=== PATIENT | female | born 1965 | race African-American/Black ===

== ENCOUNTER 2016-06-16 17:15 | Emergency (ER) | payer MEDICAID ==
[2016-06-16 17:39] VITALS: BP 192/106
--- NOTE | 2016-06-16 18:47 | ER Document Report ---
ED Medical Screen (RME) - General Stated Complaint: COUGH Notes: 50 yo female c/o cough x 2 weeks. productive, yellow phelgm. no fever. + flu about 2 weeks ago. - Related Data Allergies/Adverse Reactions: No Known Allergies Allergy (Verified 06/16/16 18:45) Past Medical History - Past Medical History Cardiac Medical History: Reports: Hx Hypertension Past Surgical History: Reports: Hx Section, Hx Orthopedic Surgery - r knee - Immunizations Immunizations up to date: Yes Hx Diphtheria, Pertussis, Tetanus Vaccination: Yes Physical Exam - Vital signs Vitals: Temp Pulse Resp BP Pulse Ox 97.8 F 97 20 192/106 H 100 06/16/16 17:38 06/16/16 17:38 06/16/16 17:38 06/16/16 17:38 06/16/16 17:38 Course - Vital Signs Vital signs: Temp Pulse Resp BP Pulse Ox 97.8 F 97 20 192/106 H 100 06/16/16 17:38 06/16/16 17:38 06/16/16 17:38 06/16/16 17:38 06/16/16 17:38
== END 2016-06-16 23:15 | disposition left against medical advice (07) ==
LOC: ER 17:15
DX: R05 Cough (principal); I10 Essential (primary) hypertension
CPT/HCPCS: 71020; 99283

== ENCOUNTER 2018-03-28 12:33 | Emergency (ER) | payer SELFPAY ==
[2018-03-28] MEDS ORDERED: HYDRALAZINE HCL INJ/PF 20 MG/1 ML SDV IV ONE ×2 (13:12→14:45)
[2018-03-28] MEDS ORDERED: LISINOPRIL 10 MG TABLET PO ONE (13:12)
[2018-03-28 13:16] LABS: ABSOLUTE BASOPHILS # (AUTO) 0.1 10^3/uL (0.0-0.2); ABSOLUTE EOSINOPHILS # (AUTO) 0.1 10^3/uL (0.0-0.6); ABSOLUTE LYMPHOCYTES (AUTO) 4.2 10^3/uL (0.5-4.7); ABSOLUTE NEUT (AUTO) 4.2 10^3/uL (1.7-8.2); BASOPHILS % (AUTO) 0.9 % (0-2); EOSINOPHILS % (AUTO) 1.4 % (0-6); HEMATOCRIT 34.3 % (36.0-47.0); HEMOGLOBIN 11.3 g/dL (12.0-15.5); LYMPHOCYTES % (AUTO) 43.9 % (13-45); MEAN CORPUSCULAR HEMOGLOBIN 22.6 pg (27.0-33.4); MEAN CORPUSCULAR HGB CONC 32.9 g/dL (32.0-36.0); MEAN CORPUSCULAR VOLUME 69 fl (80-97); MONOCYTES % (AUTO) 10.1 % (3-13); PLATELET COUNT 230 10^3/uL (150-450); RED CELL DISTRIBUTION WIDTH 15.4 % (11.5-14.0); SEGMENTED NEUTROPHILS % (AUTO) 43.7 % (42-78); TOTAL CELLS COUNTED % (AUTO) 100 %; WHITE BLOOD COUNT 9.5 10^3/uL (4.0-10.5)
[2018-03-28 13:32] LABS: ALANINE AMINOTRANSFERASE 16 U/L (9-52); ALBUMIN 4.3 g/dL (3.5-5.0); ALKALINE PHOSPHATASE 59 U/L (38-126); ANION GAP 8 (5-19); ASPARTATE AMINO TRANSFERASE 24 U/L (14-36); BILIRUBIN,DIRECT 0.3 mg/dL (0.0-0.4); BILIRUBIN,TOTAL 0.4 mg/dL (0.2-1.3); BLOOD UREA NITROGEN 15 mg/dL (7-20); CALCIUM 9.5 mg/dL (8.4-10.2); CARBON DIOXIDE 30 mmol/L (22-30); CHLORIDE 101 mmol/L (98-107); GLUCOSE 197 mg/dL (75-110); POTASSIUM 4.7 mmol/L (3.6-5.0); SODIUM 138.5 mmol/L (137-145); TOTAL PROTEIN 7.5 g/dL (6.3-8.2)
--- NOTE | 2018-03-28 13:36 | RADIOLOGY REPORT (SQ) ---
EXAM DESCRIPTION: CHEST SINGLE VIEW COMPLETED DATE/TIME: 03/28/2018 1:26 pm REASON FOR STUDY: cp COMPARISON: 06/16/2016 EXAM PARAMETERS: NUMBER OF VIEWS: One view. TECHNIQUE: Single frontal radiographic view of the chest acquired. RADIATION DOSE: NA LIMITATIONS: None. FINDINGS: LUNGS AND PLEURA: No opacities, masses or pneumothorax. No pleural effusion. MEDIASTINUM AND HILAR STRUCTURES: No masses. Contour normal. HEART AND VASCULAR STRUCTURES: Heart normal in size. Normal vasculature. BONES: No acute findings. HARDWARE: None in the chest. OTHER: No other significant finding. IMPRESSION: NO ACUTE RADIOGRAPHIC FINDING IN THE CHEST. TECHNICAL DOCUMENTATION: JOB ID: [id number] [employer]- All Rights Reserved Reading location - IP/workstation name: [email or web address]
[2018-03-28] MEDS ORDERED: AMLODIPINE BESYLATE 5 MG TABLET PO ONE (14:45)
--- NOTE | 2018-03-28 15:30 | ER Document Report ---
ED General - General Chief Complaint: Chest Congestion Stated Complaint: COUGH Time Seen by Provider: 03/28/18 13:11 Mode of Arrival: Ambulatory Information source: Patient TRAVEL OUTSIDE OF THE [place] IN LAST 30 DAYS: No - HPI Patient complains to provider of: cough congestion Onset: Other - 52-year-old female who presents for evaluation of cough and runny nose. She notes that she has been congested for the last week now feels like the cough is in her chest making it difficult for her to clear her throat. She denies any chest pain, lightheadedness, diaphoresis, nausea or emesis. She never had anything like this in the past, denies any history of heart attacks chest pain strokes kidney disease abdominal pain diarrhea constipation or dysuria. - Related Data Allergies/Adverse Reactions: No Known Allergies Allergy (Verified 03/28/18 12:35) Past Medical History - General Information source: Patient - Social History Smoking Status: Never Smoker Frequency of alcohol use: None Drug Abuse: None Family History: Reviewed & Not Pertinent Patient has suicidal ideation: No Patient has homicidal ideation: No - Past Medical History Cardiac Medical History: Reports: Hx Hypertension Renal/ Medical History: Denies: Hx Peritoneal Dialysis Past Surgical History: Reports: Hx Section, Hx Orthopedic Surgery - r knee - Immunizations Immunizations up to date: Yes Hx Diphtheria, Pertussis, Tetanus Vaccination: Yes Review of Systems - Review of Systems -: Yes All other systems reviewed and negative Physical Exam - Vital signs Vitals: Resp BP Pulse Ox 15 221/102 H 100 03/28/18 13:04 03/28/18 13:04 03/28/18 13:04 - General General appearance: Appears well, Alert - HEENT Head: Normocephalic Eyes: Normal Conjunctiva: Normal Cornea: Normal Extraocular movements intact: Yes Eyelashes: Normal Pupils: PERRL Sinus: Normal Nasal: Clear rhinorrhea Mouth/Lips: Normal Mucous membranes: Normal - Respiratory Respiratory status: No respiratory distress Chest status: Nontender Breath sounds: Normal Chest palpation: Normal - Cardiovascular Rhythm: Regular Heart sounds: Normal auscultation Murmur: No - Abdominal Inspection: Normal Distension: No distension Bowel sounds: Normal Tenderness: Nontender Organomegaly: No organomegaly - Back Back: Normal, Nontender - Extremities General upper extremity: Normal inspection, Nontender, Normal color, Normal ROM , Normal temperature General lower extremity: Normal inspection, Nontender, Normal color, Normal ROM , Normal temperature, Normal weight bearing. No: Ostio's sign - Neurological Neuro grossly intact: Yes Cognition: Normal Orientation: AAOx4 [place] Coma Scale Eye Opening: Spontaneous [place] Coma Scale Verbal: Oriented [place] Coma Scale Motor: Obeys Commands Mil[place] Coma Scale Total: 15 Speech: Normal Motor strength normal: LUE, RUE, LLE, RLE Sensory: Normal - Psychological Associated symptoms: Normal affect, Normal mood Course - Re-evaluation Re-evalutation: 03/28/18 15:47 This is an incredibly well-appearing 52-year-old woman who presents for a cough. She has had URI symptoms over the last week and believes that this is likely the cause of it. On examination this patient has incredibly well-appearing, she is a slight runny nose and some erythema in the posterior oropharynx but a reassuring cardiovascular examination with a clear pulmonary examination. Her work of breathing is normal. She has no tenderness in the chest. Her abdominal examination is benign. Likely this patient is suffering from a URI, incidentally was identified this patient has marked hypertension on evaluation. She notes that she has not been taking her lisinopril as directed previously. I believe likely that her lisinopril noncompliance is a contributor to her hypertension today. She had labs drawn through triage which are nondiagnostic at this time. She is essentially asymptomatic at this time from a hypertensive standpoint as she has no obvious renal insufficiency, has no chest pain or obvious shortness of breath. Because of her well appearance we will treat conservatively, she was given a dose of her lisinopril here, she was given a dose of hydralazine IV, and given a dose of amlodipine. She had a return of hypertension while in emergency department was redosed with hydralazine. Will re-dose and antihypertensive with clonidine for a slightly longer effect. Did discuss with the patient the importance of a blood pressure recheck in the coming couple of days, she was given a prescription for amlodipine to take daily over that time. She will follow-up with Dr. Martin that is her primary physician with a blood pressure recheck in the next 2-3 days. At the time of discharge she was chest pain-free well-appearing and stating that she was hungry. - Vital Signs Vital signs: Temp Pulse Resp BP Pulse Ox 16 210/95 H 97 03/28/18 14:42 03/28/18 14:42 03/28/18 14:42 - Laboratory Result Diagrams: 03/28/18 13:05 03/28/18 13:05 Laboratory results interpreted by me: 03/28/18 03/28/18 13:05 13:05 Hgb 11.3 L Hct 34.3 L MCV 69 L MCH 22.6 L RDW 15.4 H Glucose 197 H Discharge - Discharge Clinical Impression: Viral syndrome, Cough, Congestion of throat Hypertension Qualifiers: Hypertension type: unspecified Qualified Code(s): I10 - Essential (primary) hypertension Condition: Good Disposition: HOME, SELF-CARE Instructions: Viral Syndrome ([facility]), Cough Suppressant & Expectorant Medications Additional Instructions: Your seen today in the emergency department for your cough and congestion. He had an evaluation including a physical exam, blood tests, and x-ray and monitoring. I think that your cough and congestion is a viral syndrome. You have been given a medication to help with the cough. It was also noted today that her blood pressure is very high. Please take your lisinopril as you have been directed. You also should use the amlodipine for the next 2 days. You need to have your blood pressure checked by her primary physician in the next week. Return in case of any chest pain, lightheadedness, other symptoms or weakness. Prescriptions: Benzonatate [Tessalon Perle 100 mg Capsule] 100 mg PO Q8HP PRN #40 cap PRN Reason: Amlodipine Besylate [Norvasc 10 mg Tablet] 10 mg PO DAILY #30 tablet Guaifen/Dextromethorphan/K Cit [Sorbutuss Liquid] 474 ml PO TID #1 liquid Forms: Elevated Blood Pressure Referrals: DANIEL MARTIN MD [Primary Care Provider] - Follow up as needed
[2018-03-28] MEDS ORDERED: CLONIDINE HCL 0.2 MG TABLET PO ONE (15:44)
[2018-03-28 16:03] VITALS: BP 198/83
--- NOTE | 2018-03-28 20:15 | EKG REPORT ---
SEVERITY:- ABNORMAL ECG - SINUS RHYTHM LEFT VENTRICULAR HYPERTROPHY ST ELEV, PROBABLE NORMAL EARLY REPOL PATTERN : Confirmed by: Yrn Copeland 28-Mar-2018 20:14:29
--- NOTE | 2018-03-28 20:15 | EKG REPORT ---
SEVERITY:- ABNORMAL ECG - SINUS RHYTHM CONSIDER LEFT VENTRICULAR HYPERTROPHY ST ELEV, PROBABLE NORMAL EARLY REPOL PATTERN : Confirmed by: Yrn Copeland 28-Mar-2018 20:14:39
== END 2018-03-28 16:21 | disposition home or self-care (01) ==
LOC: ER 12:33
DX: B34.9 Viral infection, unspecified (principal); R09.89 Other specified symptoms and signs involving the circulatory and respiratory systems; R05 Cough; J34.89 Other specified disorders of nose and nasal sinuses; I10 Essential (primary) hypertension; Z91.14 Patient's other noncompliance with medication regimen
CPT/HCPCS: 93005; 96376; 99284; 96374; 36415; 85025; 80053; 71045; 93010; J0360

== ENCOUNTER 2019-08-24 15:10 | Emergency (ER) | payer BC ==
--- NOTE | 2019-08-24 15:51 | ER Document Report ---
ED Medical Screen (RME) - General Chief Complaint: Vaginal Pain Stated Complaint: VAGINAL ISSUES Time Seen by Provider: 08/24/19 15:41 Primary Care Provider: DANIEL MARTIN MD [Primary Care Provider] - Follow up as needed Mode of Arrival: Ambulatory Information source: Patient Notes: 53-year-old female presented to ED for possible tampon still in her vagina. She states she which did not feel the strength and it felt like if patient not like a IUD. She states she had an IUD before that had migrated up into her pelvic area and they told her if they were not going to take it out because there was no need to is not bothered anything. She states when she pulled on the string she felt some discomfort in her pelvic area so she did not pull it out. She states she has not pulled up the tampon that was in there. She is concerned whether the IUD is now coming out with the string or if she just has a tampon in her vaginal area. She also has high blood pressure and has not taken her medicines for 5 days. She states she was supposed to pick them up and did not pick them up yet. She her blood pressure is 247/107. I have greeted and performed a rapid initial assessment of this patient. A comprehensive ED assessment and evaluation of the patient, analysis of test results and completion of medical decision making process will be conducted by an additional ED providers. TRAVEL OUTSIDE OF THE [place] IN LAST 30 DAYS: No - Related Data Allergies/Adverse Reactions: No Known Allergies Allergy (Verified 08/24/19 15:38) Home Medications: bp medication Past Medical History - Social History Chew tobacco use (# tins/day): No Frequency of alcohol use: Social Drug Abuse: None - Past Medical History Cardiac Medical History: Reports: Hx Hypertension Renal/ Medical History: Denies: Hx Peritoneal Dialysis Past Surgical History: Reports: Hx Section, Hx Orthopedic Surgery - r knee - Immunizations Immunizations up to date: Yes Hx Diphtheria, Pertussis, Tetanus Vaccination: Yes Physical Exam - Vital signs Vitals: Temp Pulse Resp BP Pulse Ox 98.7 F 78 16 248/119 H 98 08/24/19 15:14 08/24/19 15:14 08/24/19 15:14 08/24/19 15:14 08/24/19 15:14 Course - Vital Signs Vital signs: Temp Pulse Resp BP Pulse Ox 98.7 F 78 16 245/107 H 98 08/24/19 15:38 08/24/19 15:14 08/24/19 15:14 08/24/19 15:47 08/24/19 15:14 Doctor's Discharge - Discharge Referrals: DANIEL MARTIN MD [Primary Care Provider] - Follow up as needed
[2019-08-24 16:34] LABS: ABSOLUTE BASOPHILS # (AUTO) 0.1 10^3/uL (0.0-0.2); ABSOLUTE EOSINOPHILS # (AUTO) 0.1 10^3/uL (0.0-0.6); ABSOLUTE LYMPHOCYTES (AUTO) 3.4 10^3/uL (0.5-4.7); ABSOLUTE MONOCYTES (AUTO) 0.7 10^3/uL (0.1-1.4); ABSOLUTE NEUT (AUTO) 4.2 10^3/uL (1.7-8.2); BASOPHILS % (AUTO) 0.6 % (0-2); EOSINOPHILS % (AUTO) 1.2 % (0-6); HEMATOCRIT 40.5 % (36.0-47.0); HEMOGLOBIN 13.2 g/dL (12.0-15.5); LYMPHOCYTES % (AUTO) 40.3 % (13-45); MEAN CORPUSCULAR HEMOGLOBIN 22.6 pg (27.0-33.4); MEAN CORPUSCULAR HGB CONC 32.5 g/dL (32.0-36.0); MEAN CORPUSCULAR VOLUME 70 fl (80-97); MONOCYTES % (AUTO) 8.4 % (3-13); PLATELET COUNT 220 10^3/uL (150-450); RED BLOOD COUNT 5.83 10^6/uL (3.72-5.28); RED CELL DISTRIBUTION WIDTH 15.5 % (11.5-14.0); SEGMENTED NEUTROPHILS % (AUTO) 49.5 % (42-78); TOTAL CELLS COUNTED % (AUTO) 100 %; WHITE BLOOD COUNT 8.5 10^3/uL (4.0-10.5)
[2019-08-24 16:43] LABS: ALBUMIN 4.8 g/dL (3.5-5.0); ALKALINE PHOSPHATASE 60 U/L (38-126); ANION GAP 11 (5-19); ASPARTATE AMINO TRANSFERASE 23 U/L (14-36); BILIRUBIN,TOTAL 0.4 mg/dL (0.2-1.3); BLOOD UREA NITROGEN 17 mg/dL (7-20); CALCIUM 9.9 mg/dL (8.4-10.2); CARBON DIOXIDE 25 mmol/L (22-30); CHLORIDE 99 mmol/L (98-107); GLUCOSE 247 mg/dL (75-110); POTASSIUM 4.6 mmol/L (3.6-5.0); TOTAL PROTEIN 8.3 g/dL (6.3-8.2)
[2019-08-24 17:22] LABS: APPEARANCE,URINE CLOUDY; BILIRUBIN,URINE NEGATIVE (NEGATIVE); COLOR,URINE YELLOW; GLUCOSE, URINE 50 mg/dL (NEGATIVE); KETONES,URINE NEGATIVE (NEGATIVE); PROTEIN,URINE 100 mg/dL (NEGATIVE); URINE SPECIFIC GRAVITY 1.021; UROBILINOGEN,URINE NEGATIVE mg/dL (<2.0)
--- NOTE | 2019-08-24 17:32 | ER Document Report ---
ED General - General Chief Complaint: Vaginal Pain Stated Complaint: VAGINAL ISSUES Time Seen by Provider: 08/24/19 15:41 Primary Care Provider: DANIEL MARTIN MD [Primary Care Provider] - Follow up as needed Mode of Arrival: Ambulatory TRAVEL OUTSIDE OF THE [place] IN LAST 30 DAYS: No - HPI Notes: Chief complaint: Possible retained vaginal foreign body HPI: 53-year-old female presents with concern for possible vaginal foreign body. Patient says that she thinks that she may have a tampon left in the vagina that she has been unable to remove over the past several days. She denies fever chills or vaginal discharge. She denies dysuria. She is having some mild vaginal discomfort. Patient also notes that she has an IUD and was told in the past that the IUD might be displaced. She says she thinks she can feel the IUD string but is unsure about this and would like to have this checked also while she is here. Patient notes that she has longstanding history of hypertension and she supposed to be taking amlodipine 10 mg daily and lisinopril 20 mg daily. She says that she lost her insurance and was unable to fill her medications for the last 2 weeks. She is now gotten her insurance reinstated and says that she will be able to get these filled today. She denies any headache, dizziness, focal neurologic symptoms, chest pain, dyspnea or difficulty with swallowing or speaking. Patient reports that she is frequently thirsty and is having to get up to urinate at night 2-3 times each evening. Vision has been slightly blurry. She says her family history is strongly positive for diabetes but she has not been tested recently for this. She is never been told that she is diabetic. The patient is seen by Dr. Martin but has not been in for an office visit in close to a year. Presently smokes about 1/4 pack cigarettes per day. Occasional social alcohol. Denies drug use. - Related Data Allergies/Adverse Reactions: No Known Allergies Allergy (Verified 08/24/19 15:38) Home Medications: bp medication Past Medical History - General Information source: Patient, [facility] Records - Social History Smoking Status: Current Some Day Smoker Chew tobacco use (# tins/day): No Frequency of alcohol use: Social Drug Abuse: None Family History: Reviewed & Not Pertinent Patient has homicidal ideation: No - Past Medical History Cardiac Medical History: Reports: Hx Hypertension Endocrine Medical History: Denies: Hx Diabetes Mellitus Type 1, Hx Diabetes Mellitus Type 2 Renal/ Medical History: Denies: Hx Peritoneal Dialysis Past Surgical History: Reports: Hx Section, Hx Orthopedic Surgery - r knee - Immunizations Immunizations up to date: Yes Hx Diphtheria, Pertussis, Tetanus Vaccination: Yes Review of Systems - Review of Systems Notes: Constitutional: Negative for fever. HENT: Negative for sore throat. Eyes: Negative for visual changes. Cardiovascular: Negative for chest pain. Respiratory: Negative for shortness of breath. Gastrointestinal: Negative for abdominal pain, vomiting or diarrhea. Genitourinary: Negative for dysuria. Musculoskeletal: Negative for back pain. Skin: Negative for rash. Neurological: Negative for headaches, weakness or numbness. 10 point ROS negative except as marked above and in HPI. Physical Exam - Vital signs Vitals: Temp Pulse Resp BP Pulse Ox 98.7 F 78 16 248/119 H 98 08/24/19 15:14 08/24/19 15:14 08/24/19 15:14 08/24/19 15:14 08/24/19 15:14 - Notes Notes: GENERAL: Well-developed well-nourished appearing in no acute distress. Blood pressure rechecked by me 205/110. SKIN: Good turgor no rashes. HEAD: Normocephalic atraumatic. EYES: PERRLA. EOMI. Conjunctivae and sclerae clear. EARS: CANALS AND TMS CLEAR. NOSE: CLEAR. MOUTH: Moist mucosa. Good dentition. No stridor or edema. No drooling. NECK: Supple. No masses or thyromegaly. No adenopathy. Carotids 2+ without bruits. No JVD. BACK: Symmetrical without tenderness. CHEST: Respirations unlabored. Breath sounds clear and symmetrical. HEART: Regular rhythm. No murmur gallop or rub. ABDOMEN: Soft nontender without masses, organomegaly or rebound. Bowel sounds normally active. No bruits. PELVIC: Normal external genitalia and hair distribution. Small amount of menstrual blood in the vaginal vault. There is no evidence of a retained tampon or other foreign bodies. IUD string is visible at cervical loss. Bimanual exam shows uterus normal in size and position there is no pelvic tenderness or cervical motion tenderness. There are no adnexal masses. Ovaries are nonpalpable. EXTREMITIES: No edema. No calf tenderness. Cap refill less than 1.5 seconds. Dorsalis pedis and posterior tibial pulses 3+ and symmetrical. NEUROLOGICAL: GCS 15. Alert and oriented x3. Normal gait. Fluent speech. Cranial nerves II through XII intact. Sensorimotor and cerebellar normal. Normal tone. PSYCHIATRIC: Appropriate affect. Course - Re-evaluation Re-evalutation: 08/24/19 20:14 Patient had no evidence of retained vaginal foreign body on pelvic exam. IUD appears to be in appropriate position with string visible at cervical loss. She has been noncompliant with her blood pressure medication and her BP is very high here. We are giving her some clonidine to lower this prior to discharge. I did a urine drug screen and she does not have any evidence of cocaine use. She says she can get her regular BP meds refilled and get restarted on these immediately. She also has evidence of new onset diabetes mellitus and she is going need a prescription for some metformin. I think she can follow-up reasonably with her doctor on an outpatient basis. - Vital Signs Vital signs: Temp Pulse Resp BP Pulse Ox 98.7 F 78 18 212/106 H 99 08/24/19 15:38 08/24/19 15:14 08/24/19 19:46 08/24/19 19:46 08/24/19 19:46 - Laboratory Result Diagrams: 08/24/19 16:11 08/24/19 16:11 Laboratory results interpreted by me: 08/24/19 08/24/19 08/24/19 16:11 16:11 17:02 RBC 5.83 H MCV 70 L MCH 22.6 L RDW 15.5 H Sodium 134.5 L Glucose 247 H Total Protein 8.3 H Urine Protein 100 H Urine Glucose (UA) 50 H Urine Blood LARGE H Urine Nitrite (Reflex) POSITIVE H Leukocyte Esterase Rfl LARGE H Urine Ascorbic Acid 40 H - EKG Interpretation by Me Additional EKG results interpreted by me: 08/24/19 18:43 Twelve-lead EKG from 1554 hrs. is reviewed contemporaneously by me showing normal sinus rhythm with a rate of 68 and a QRS axis of positive for degrees. Changes consistent with LVH with secondary repolarization are present. Discharge - Discharge Clinical Impression: Hypertensive urgency, New onset type 2 diabetes mellitus Condition: Stable Disposition: HOME, SELF-CARE Additional Instructions: High Blood Pressure, Requiring Treatment Your blood pressure is high. This is called "hypertension." Today's reading was very elevated (normal is less than 140/90). Your history and exam suggest that this is not a temporary problem. You need treatment of your blood pressure. Pre-hypertension/Hypertension: The patient has been informed that they may have pre-hypertension or Hypertension based on a blood pressure reading in the emergency department. I recommend that the patient call the primary care provider listed on their discharge instructions or a physician of their choice this wee to arrange follow up for further evaluation of possible pre- hypertension or Hypertension. If left untreated, high blood pressure greatly increases your risk of heart attack and stroke. Please don't ignore this problem. If you have blood pressure medicine but aren't using it regularly, start taking it again. Some simple things you can do to help are: Get some aerobic exercise for at least 20 minutes on a daily basis. (See your doctor before beginning any new exercise program.) Eat a low-fat diet. Lose excess weight. Avoid salty foods and avoid adding salt to any of the foods you eat. Avoid diet pills, decongestants, "energizing" herbs, and other medicines that elevate blood pressure. There are many different medicines that treat blood pressure. If your medication causes unpleasant side effects, call your doctor. There are others you can try. Treating hypertension is a life-long investment in your health. Get back on your prescribed medication and follow-up on your blood pressure with your doctor within the next 1 week. Diabetes You have an abnormally high blood sugar, suspicious for diabetes. Not all high blood sugar requires long-term treatment. High blood sugar can be due to medications, , or the stress of illness. (These cases are "borderline diabetes.") If the doctor feels your high blood sugar might get better with time, you may not require treatment now. You will be scheduled for further evaluation. It's very important that you follow through. Uncontrolled high blood sugar leads to early heart disease, strokes, nerve damage, eye damage, and kidney damage. All diabetics should follow a diet designed to control the blood sugar. Overweight diabetics should exercise regularly and lose weight. If this is not sufficient to control the blood sugar, pills or insulin shots are necessary. Younger people who develop diabetes almost always require insulin daily. Home testing of blood sugars or urine sugar is required. Diabetic teaching is available to help you figure insulin doses and monitor the blood sugar. Call the physician if there is faintness, excess sleepiness, or very rapid breathing. If hypoglycemia (LOW blood sugar) develops, symptoms are shakiness, weakness, sweating, and confusion. In this case, you should eat or drink something with sugar at once. A new medication called metformin is being prescribed for your blood sugar. See your doctor within the next 1 week for further evaluation and management of your diabetes. Return here as needed for new or worsening symptoms: Pain that is worsening or unimproved Uncontrolled vomiting High fever or shaking chills Overall worsening Prescriptions: Metformin HCl [Glucophage 500 mg Tablet] 500 mg PO BID #60 tablet Referrals: DANIEL MARTIN MD [Primary Care Provider] - Follow up as needed
[2019-08-24] MEDS ORDERED: CLONIDINE HCL 0.1 MG TABLET PO ONE ×2 (17:33→20:13)
--- NOTE | 2019-08-24 17:48 | EKG REPORT ---
SEVERITY:- ABNORMAL ECG - SINUS RHYTHM PROBABLE LEFT ATRIAL ABNORMALITY LEFT VENTRICULAR HYPERTROPHY ABNORMAL T, CONSIDER ISCHEMIA, LATERAL LEADS ST ELEV, PROBABLE NORMAL EARLY REPOL PATTERN : Confirmed by: Malia Fuentes MD 24-Aug-2019 17:48:13
[2019-08-24 18:19] LABS: URINE AMPHETAMINES SCREEN NEGATIVE; URINE BARBITURATES SCREEN NEGATIVE; URINE BENZODIAZEPINES SCREEN NEGATIVE; URINE COCAINE SCREEN NEGATIVE; URINE MARIJUANA (THC) SCREEN NEGATIVE; URINE METHADONE SCREEN NEGATIVE; URINE PHENCYCLIDINE SCREEN NEGATIVE
[2019-08-24 19:06] LABS: BACTERIA (WET MOUNT) 4+ BACTERIA SEEN; RBCS (WET MOUNT) 4+ RBCS SEEN; T.VAGINALIS (WET MOUNT) NO TRICHOMONAS SEEN; WBCS (WET MOUNT) 3+ WBCS SEEN; YEAST (WET MOUNT) NO YEAST SEEN
[2019-08-24 19:07] LABS: EPITHELIALS (WET MOUNT) 3+ EPITHELIALS SEEN
[2019-08-24] MEDS ORDERED: ACETAMINOPHEN 325 MG TABLET PO ONE (20:02)
[2019-08-24 20:37] LABS: CHLAM PCR NOT DETECTED (NOT DETECT)
[2019-08-24 20:52] VITALS: BP 190/98
== END 2019-08-24 21:14 | disposition home or self-care (01) ==
LOC: ER 15:10
DX: R39.15 Urgency of urination (principal); E11.9 Type 2 diabetes mellitus without complications; R10.2 Pelvic and perineal pain; H53.8 Other visual disturbances; I10 Essential (primary) hypertension; Z79.899 Other long term (current) drug therapy; F17.210 Nicotine dependence, cigarettes, uncomplicated
CPT/HCPCS: 36415; 80053; 80307; 81001; 81025; 83690; 84484; 85025; 87086; 87088; 87186; 87210; 87491; 87591; 93005; 93010; 99283